=== PATIENT | male | born 1975 | race Caucasian/White ===

== ENCOUNTER 2016-09-17 11:23 | Emergency (ER) | payer MEDICARE, MEDICAID ==
[2016-09-17 11:24] VITALS: BMI 32.1
[2016-09-17] MEDS ORDERED: SODIUM CHLORIDE 0.9% 10 ML FLUSH FLUSH PRN (11:36)
[2016-09-17 11:40] VITALS: TEMP 98.3
--- NOTE | 2016-09-17 11:40 | EDPRACDOC ---
- General Information Stated Complaint: LEFT SIDED WEAKNESS Time Seen by Provider: 09/17/16 11:29 Information Source: Patient Mode Of Arrival: Ambulance Home Medications: Home Medications Divalproex Sodium [Depakote ER] 1,000 mg PO BID 02/18/13 Alprazolam [Xanax] 0.5 mg PO BID PRN 02/24/13 Omeprazole [Prilosec] 40 mg PO BID 03/19/14 Gabapentin [Neurontin] 300 mg PO TID 02/10/15 Levetiracetam [Keppra] 500 mg PO BID 02/13/15 Risperidone 4 mg PO HS 02/13/15 Allopurinol [Zyloprim] 300 mg PO DAILY 06/16/15 Triamterene/Hydrochlorothiazid [Triamterene-Hctz 37.5-25 mg Tb] 1 tab PO QAM Fluticasone/Salmeterol [Advair 250-50] 1 puff INH BID 01/08/16 Tamsulosin HCl [Flomax] 0.4 mg PO HS 01/08/16 Fluticasone Propionate [Flonase] 2 spray SIMIN DAILY 04/05/16 Atorvastatin Calcium [Lipitor] 20 mg PO DAILY 09/17/16 Potassium Chloride 10 meq PO DAILY 09/17/16 Allergies/Adverse Reactions: Allergies Allergy/AdvReac Type Severity Reaction Status Date / Time amoxicillin [Amoxicillin] Allergy Severe Difficulty Verified 09/17/16 11:39 Breathing aspirin Allergy Severe Anaphylaxis Verified 09/17/16 11:39 * fexofenadine HCl Allergy Severe Bleeding Verified 09/17/16 11:39 [From Lisy] pseudoephedrine HCl Allergy Severe Anaphylaxis Verified 09/17/16 11:39 [From Lisy-D 12 Hour] * erythromycin base Allergy Anaphylaxis Verified 09/17/16 11:39 * nitroglycerin Allergy Anaphylaxis Verified 09/17/16 11:39 * - History of Present Illness Onset: today Exact Onset of Symptoms: Upon Awakening Date Symptoms Started: 09/17/16 HPI: Pt states he awoke with l side numbness and weakness this morning. Denies fever , headache, vision changes, n/v, cp, sob, changes in bowel or bladder, rash. C/o diffuse abd pain Symptoms Started: Reports: While asleep Symptoms Description: Constant Weakness: Left: Arm, Leg, Face Symptoms: Reports: Numbness, Weak Symptom Severity: Reports: Unable to performs ADL's Associated signs and symptoms:: Reports: None ED Past Medical History - History Reviewed Yes Nurses notes reviewed and agree except as marked - Patient Medical History Neurological History: Reports: Cerebrovascular Accident (TIA), Seizures ( PSEUDOSEIZURES), Migraine. Denies: Dementia Cardiac History: Reports: Hypertension. Denies: Atrial Fibrillation, Congestive Heart Failure, Heart Attack, Hypercholesterolemia Respiratory History: Reports: Asthma, COPD, Emphysema GI/ History: Reports: Gastroesophageal Reflux, Ulcer Psychological History: Reports: Depression, Anxiety, Bipolar Disorder. Denies: Substance Use Disorder Systemic History: Reports: Anemia. Denies: Cancer, Diabetes Surgical History: Reports: Tonsillectomy/Adnoidectomy, Other (CRANIOTOMY-SINUS SURGERY) - Family Medical History Reports: Stroke - Social Medical History Smoking Status: Heavy tobacco smoker (5 or more cigarettes/day or daily pipe/ cigar) Social History: Denies: Substance Use Disorder ETOH: None Substance Abuse: None EDM Review of Systems - Review of Systems Constitutional: Weakness Eyes: No Symptoms Reported. negative: Redness, Blurred Vision, Double Vision, Discharge, Pain, Light Sensitive, Photophobia Ears: No Symptoms Reported. negative: Pain, Hearing Loss, Drainage, Ear Pulling Throat: No Symptoms Reported. negative: Pain, Swelling Nose: No Symptoms Reported. negative: Congestion, Bleeding, Discharge, Injection, Swelling, Deformity, Ecchymosis, Tender, Abrasion, Laceration Mouth: No Symptoms Reported. negative: Pain, Drooling Respiratory: No Symptoms Reported. negative: Cough, Brassy Cough, Barky Cough, Shortness of Breath, Wheezing, Hemoptysis Cardiovascular: No Symptoms Reported. negative: Chest Pain, Palpitations, Syncope, Edema, Orthopnea, PND, Skin Mottling, Cyanosis Gastrointestinal: Pain. negative: No Symptoms Reported, Constipation, Diarrhea , Formula Intolerance, Melena, Nausea, Vomiting Genitourinary: No Symptoms Reported. negative: Dysuria, Hematuria, Frequency, Discharge, Bleeding, Testicular Pain, Neurological: Numbness, Weakness Musculoskeletal: No Symptoms Reported. negative: Neck, Chestwall, Ribs, Back, Shoulder, Arm, Elbow, Forearm, Wrist, Hand, Pelvis, Hip, Femur, Knee, Leg, Ankle , Foot Integumentary: No Symptoms Reported. negative: Itching, Rash, Bruising, Wound Allergic/Immunologic: No Symptoms Reported. negative: Hives, Itching Hematologic: No Symptoms Reported. negative: Lymphadenopathy, Easy Bruising, Easy Bleeding Psychiatric: No Symptoms Reported. negative: Anxiety, Depression, Hallucinations, Insomnia, Suicidal - Physical Exam Constitutional: Alert Oriented to: Time, Person, Place Last recorded Vital Signs: Oxygen Pulse Oxygen Saturation O2 Device Oxygen Flow Rate Fraction of Inspired Oxygen ( FIO2) - HEENT Head: Normal ( normocephalic) Eye Exam: Normal (PERRL, EOMI, Sclera white) Oropharynx: Normal (Pharynx:Moist without exudate,Gums-no swelling) Tympanic Membrane: Normal ENT EAC: Normal TMJ: Normal Nose: No Symptoms Reported (septum midline) Neck: Normal (FROM, trachea at midline) - Respiratory/Cardiovascular Respiratory: Normal - CTA (BBS clear to auscultation without adventitious sounds ) Cardiovascular: Normal (RRR without murmur, gallop or rub) - GI Auscultation: Normal (NABS) Palpation: Normal (Soft,No rebound or guarding, non distended) Tenderness: Diffuse, Mild - Musculoskeletal Back: Normal (Non-Tender) Extremities: Normal (Normal tone, Pulses 2+ No cyanosis or edema, FROM) - Integumentary Skin: Normal, Warm, Dry Lymphatics: Normal (no adenopathy) - Neurologic Memory Impaired: Normal Motor Function: Unable to Test Cranial Nerve: Normal Cerebellar: Unable to Test (L side) Mood Description: Normal Perception: Normal Neurologic Comment: Pt not very cooperative with neuro exam NIH Stroke Scale Initial Evaluation Level of Consciousness: Alert LOC- Question: Answers Both Correctly LOC Commands: Both Task Correctly Best Gaze: Normal Visual: No Visual Loss Facial Palsy: Normal Movement Motor Arm LEFT: Some Effort Against [place] Motor Arm RIGHT: No Drift Motor Leg LEFT: Some Effort Against [place] Motor Leg RIGHT: No Drift Limb Ataxia: Unable to Assess (L arm or leg) Sensory: Normal Best Language: No Aphasia Dysarthria: Normal Extinction and Inattention: No Abnormality (Neglect) Score: 4out of42 - Differential Diagnosis CVA, Dehydration, Dysrhythmia, Electrolyte disorder, Hypoglycemia, TIA - Results 09/17/16 13:00 09/17/16 13:10 09/17/16 14:02 Laboratory Results - last 24 hr 09/17/16 09/17/16 09/17/16 13:00 13:00 13:00 WBC 6.8 RBC 4.96 Hgb 15.0 Hct 45.0 MCV 91 MCH 30.2 MCHC 33.4 RDW 13.6 Plt Count 225 MPV 10.2 Neut % (Auto) 63.1 Lymph % (Auto) 23.6 [place] % (Auto) 7.6 Eos % (Auto) 4.2 Baso % (Auto) 1.5 Absolute Neuts (auto) 4.28 Absolute Lymphs (auto) 1.56 PT 10.9 INR 1.1 APTT 25.0 Sodium Potassium Chloride Carbon Dioxide Anion Gap BUN Creatinine Estimated GFR (MDRD) Glucose Calculated Osmolality Calcium Corrected Calcium Total Bilirubin AST ALT Alkaline Phosphatase Troponin I Total Protein Albumin Urine Color Yellow Urine Clarity Clear Urine pH 8.0 Ur Specific [place] 1.005 Urine Protein Neg Urine Glucose (UA) Neg Urine Ketones Neg Urine Occult Blood 1+ H Urine Nitrite Neg Urine Bilirubin Neg Urine Urobilinogen <2.0 Ur Leukocyte Esterase Neg Urine RBC 0-2 Urine WBC 0-2 Urine Bacteria Few Valproic Acid 09/17/16 09/17/16 13:10 13:10 WBC RBC Hgb Hct MCV MCH MCHC RDW Plt Count MPV Neut % (Auto) Lymph % (Auto) [place] % (Auto) Eos % (Auto) Baso % (Auto) Absolute Neuts (auto) Absolute Lymphs (auto) PT INR APTT Sodium 138 Potassium 3.6 Chloride 102 Carbon Dioxide 26 Anion Gap 14 BUN 15 Creatinine 0.90 Estimated GFR (MDRD) > 60 Glucose 89 Calculated Osmolality 266 L Calcium 9.2 Corrected Calcium 9.3 Total Bilirubin 0.6 AST 36 ALT 45 Alkaline Phosphatase 75 Troponin I < 0.01 Total Protein 7.5 Albumin 3.9 Urine Color Urine Clarity Urine pH Ur Specific [place] Urine Protein Urine Glucose (UA) Urine Ketones Urine Occult Blood Urine Nitrite Urine Bilirubin Urine Urobilinogen Ur Leukocyte Esterase Urine RBC Urine WBC Urine Bacteria Valproic Acid 99.1 - EKG EKG #1 EKG Time: 11:37 Rate: bpm: 73 [place]: Normal Rhythm: NSR Block: RBBB ST: Nonsp Comparison: 06/16/16 (no significant change) - Diagnostic Imaging Head Image interpreted by: Radiologist IMPRESSION: Negative unenhanced CT of the brain Prior sinus surgery with extensive chronic sinusitis. Chest Image interpreted by: Radiologist IMPRESSION: Stable chest x-ray. No active disease. - Additional Information Pt able to ambulate to restroom without difficulty. Discussed pt with martha White to d/c home Decision Time to Discharge: 14:04 - Departure Disposition: Home Condition: Good Final Diagnosis: Attacks of weakness Instructions: Weakness (ED) Education/Counseling Given To: Patient Education/Counseling Given Regarding: Diagnosis, Treatment, Follow Up Referrals: None,No Provider [Primary Care Provider] - One Week Cm Escobedo MD [Staff Physician] - One Week Prescriptions: No Action Divalproex Sodium [Depakote ER] 1,000 mg PO BID Alprazolam [Xanax] 0.5 mg PO BID PRN PRN Reason: ANXIETY/SEIZURE Omeprazole [Prilosec] 40 mg PO BID Gabapentin [Neurontin] 300 mg PO TID Risperidone 4 mg PO HS Levetiracetam [Keppra] 500 mg PO BID Allopurinol [Zyloprim] 300 mg PO DAILY Triamterene/Hydrochlorothiazid [Triamterene-Hctz 37.5-25 mg Tb] 1 tab PO QAM Tamsulosin HCl [Flomax] 0.4 mg PO HS Fluticasone/Salmeterol [Advair 250-50] 1 puff INH BID Fluticasone Propionate [Flonase] 2 spray SIMIN DAILY Potassium Chloride 10 meq PO DAILY Atorvastatin Calcium [Lipitor] 20 mg PO DAILY Additional Instructions: Return for worse or different symptoms.
--- NOTE | 2016-09-17 12:44 | DIRPT ---
CLINICAL DATA: Left-sided weakness EXAM: CT HEAD WITHOUT CONTRAST TECHNIQUE: Contiguous axial images were obtained from the base of the skull through the vertex without intravenous contrast. COMPARISON: CT head 11/21/2013 FINDINGS: Ventricle size is normal. Negative for acute or chronic infarction. Negative for hemorrhage or fluid collection. Negative for mass or edema. No shift of the midline structures. Calvarium is intact. Extensive sinus surgery. Bifrontal craniotomy as well as medial antrectomy. Mucosal thickening and diffuse bony thickening throughout the paranasal sinuses compatible with chronic sinusitis. No air-fluid level. IMPRESSION: Negative unenhanced CT of the brain Prior sinus surgery with extensive chronic sinusitis. Electronically Signed By: Saurabh Mauricio M.D. On: 09/17/2016 12:42
--- NOTE | 2016-09-17 13:08 | DIRPT ---
CLINICAL DATA: Left-sided weakness EXAM: PORTABLE CHEST 1 VIEW COMPARISON: Chest x-ray dated 06/15/2016. FINDINGS: Heart size is upper normal, stable. Overall cardiomediastinal silhouette is stable in size and configuration. Lungs remain clear. No confluent opacity to suggest a developing pneumonia. No pleural effusion. No pneumothorax seen. Osseous and soft tissue structures about the chest are unremarkable. IMPRESSION: Stable chest x-ray. No active disease. Electronically Signed By: Ramos Guzman M.D. On: 09/17/2016 13:05
[2016-09-17 13:13] LABS: AUTOMATED BASOPHIL 1.5 % (0-2); AUTOMATED EOSINOPHIL 4.2 % (0-5); AUTOMATED LYMPH 23.6 % (17-44); AUTOMATED MONOCYTE 7.6 % (3-10); AUTOMATED NEUTROPHIL 63.1 % (45-76); MPV 10.2 fL (7.4-10.4)
[2016-09-17 13:24] LABS: PT-INR 1.1
[2016-09-17 13:25] LABS: BLOOD UREA NITROGEN 15 MG/DL (9-20); CALC CORRECTED 9.3 MG/DL (8.4-10.2); CALCIUM 9.2 MG/DL (8.4-10.2); CALCULATED OSMOLALITY 266 MOs/Kg (270-290); CHLORIDE 102 mEq/L (98-107); GLUCOSE 89 mg/dL (70-99); SODIUM LEVEL 138 mEq/L (137-146); TOTAL PROTEIN 7.5 G/DL (6.3-8.2)
[2016-09-17 13:27] LABS: LEUKOCYTES/URINE NEG (NEGATIVE); NITRITE/URINE NEG (NEGATIVE); RBC/URINE 0-2 (0-2); URINE OCCULT BLOOD 1+ (NEG/TRACE); WBC/URINE 0-2 (0-2)
[2016-09-17 14:53] VITALS: BP 133/62; PULSE 77
== END 2016-09-17 14:52 | disposition home or self-care (01) ==
LOC: ED 11:23
DX: R53.1 Weakness (principal)
CPT/HCPCS: 36415; 70450; 71010; 80053; 80164; 81001; 84484; 85025; 85610; 85730; 93005; 99284